=== PATIENT | male | born 1975 | race Asian ===

== ENCOUNTER 2021-12-11 23:13 | Emergency (ER) | payer OTHER ==
[~2021-12-11] VITALS: Ht 188 cm; Wt 117.9 kg
[2021-12-11 23:36] LABS: PLATELET COUNT 201 K/uL (142-355)
[2021-12-11 23:48] LABS: POTASSIUM 4.2 mmol/L (3.6-5.2); SODIUM 139 mmol/L (136-145)
[2021-12-12 00:37] VITALS: BP 146/101; TEMP 98
== END 2021-12-12 00:42 | disposition home or self-care (01) ==
LOC: ED 23:13
PROVIDERS: Hospitalist
DX: F32.89 Other specified depressive episodes (principal); Z79.899 Other long term (current) drug therapy; Z51.81 Encounter for therapeutic drug level monitoring
CPT/HCPCS: 80053; 80143; 80179; 80307; 80320; 81000; 85027; 93005; 99285